=== PATIENT | male | born 1980 ===

== ENCOUNTER 2017-05-16 19:14 | Observation (INO) | payer SELFPAY ==
[2017-05-16 19:41] VITALS: BMI 26.4
[2017-05-16 19:52] VITALS: TEMP 98.1
--- NOTE | 2017-05-16 20:28 | ED PDOC ---
Arrival/HPI - General Chief Complaint: Alcohol Ingestion Time Seen by Provider: 05/16/17 20:16 Historian: Patient - History of Present Illness Narrative History of Present Illness (Text): 05/16/17 20:17 A 36 year old male was brought in by EMS presents to the emergency department for intoxication [place]. Patient admits to drinking a case of beer. Denies of any chest pain, abdominal pain, no shortness of breath. denies headache or dizziness. Denies of any complaints, but does point to old ecchymosis along right anterior chest wall. pt states he thinks he injured it a few days ago at work. denies pain to area. No PMD Time/Duration: Prior to Arrival Symptom Onset: Gradual Symptom Course: Unchanged Context: Other (Park) Past Medical History - Provider Review Nursing Documentation Reviewed: Yes - Travel History Have you recently traveled outside [place] w/in the past 3 mons?: No - Tetanus Immunization Tetanus Immunization: Unknown - Psychiatric Hx Substance Use: No Family/Social History - Physician Review Nursing Documentation Reviewed: Yes Family/Social History: No Known Family HX Smoking Status: unk Hx Alcohol Use: Yes Frequency of alcohol use: Daily Hx Substance Use: No Allergies/Home Meds Allergies/Adverse Reactions: Allergies No Known Allergies Allergy (Verified 05/16/17 19:41) Home Medications: Home Meds Medication Instructions Recorded Confirmed RX: Unobtainable 05/16/17 05/16/17 Review of Systems - Review of Systems Systems not reviewed;Unavailable: Intoxicated Constitutional: absent: Fevers, Other (no trauma or injures) ENT: absent: Epistaxis, Sinus Congestion Respiratory: absent: SOB, Cough Cardiovascular: absent: Chest Pain, Palpitations Gastrointestinal: absent: Abdominal Pain, Nausea, Vomiting Musculoskeletal: absent: Arthralgias, Back Pain, Neck Pain Skin: Other (ecchymosis to right anterior chest). absent: Pruritis Neurological: absent: Headache, Dizziness Psychiatric: absent: Anxiety, Depression, Suicidal Ideation Physical Exam Vital Signs Reviewed: Yes Vital Signs Temp Pulse Resp BP Pulse Ox 05/17/17 03:00 82 18 134/84 98 05/17/17 01:00 84 18 135/84 99 05/16/17 23:00 83 18 138/86 98 05/16/17 21:15 97 H 17 137/94 H 99 05/16/17 19:41 98.1 F 72 18 146/84 99 Temperature: Afebrile Blood Pressure: Normal Pulse: Regular Respiratory Rate: Normal Appearance: Positive for: Non-Toxic, Comfortable, Unkept Pain Distress: None Mental Status: Positive for: Alert and Oriented X 3 Finger Stick Blood Glucose: 83 - Systems Exam Head: Present: Atraumatic. No: Tenderness, Ecchymosis, Abrasion, Laceration Extroacular Muscles: Present: EOMI Mouth: Present: Moist Mucous Membranes Neck: Present: Normal Range of Motion. No: MIDLINE TENDERNESS, Paraspinal Tenderness Respiratory/Chest: Present: Clear to Auscultation, Other (small area of ecchymosis noted to right anterior chest). No: Respiratory Distress, Accessory Muscle Use, Tender to Palpation Cardiovascular: Present: Regular Rate and Rhythm Abdomen: No: Tenderness, Distention, Rebound, Guarding Back: Present: Normal Inspection. No: Midline Tenderness, Paraspinal Tenderness Upper Extremity: Present: Normal Inspection, Normal ROM Lower Extremity: Present: Normal Inspection, Normal ROM Neurological: Present: GCS=15, Motor Func Grossly Intact Skin: Present: Warm, Dry Psychiatric: Present: Alert Medical Decision Making ED Course and Treatment: 05/16/17 20:36 36-year-old male presents for acute alcohol intoxication. Alert oriented in no distress Fingerstick 83 Will observe in the emergency room for sobriety 05/17/17 02:00 case signed out to dr. turcios pending sobriety, re-eval and disposition. ED OBSERVATION Date of observation admission: 05/16/17 Time of observation admission: 19:20 - Observation admission statement Patient is being placed in observation because:: alcohol intoxication - Goals of Observation Goals of observation are:: sobriety - Progress Note Progress Note: 05/16/17 22:18 pt non toxic well appearing; sleeping. 05/17/17 00:08 pt non toxic well appearing; sleeping. 05/17/17 02:00 pt non toxic well appearing; sleeping; stable vitals. case signed out to dr. turcios pending re-eval and disposition. - Scribe Statement The provider has reviewed the documentation as recorded by the Henokibe Clair Holguin Provider Scribe Attestation: All medical record entries made by the Scribe were at my direction and personally dictated by me. I have reviewed the chart and agree that the record accurately reflects my personal performance of the history, physical exam, medical decision making, and the department course for this patient. I have also personally directed, reviewed, and agree with the discharge instructions and disposition. Disposition/Present on Arrival - Present on Arrival Any Indicators Present on Arrival: No History of DVT/PE: No History of Uncontrolled Diabetes: No Urinary Catheter: No History of Decub. Ulcer: No History Surgical Site Infection Following: None - Disposition Have Diagnosis and Disposition been Completed?: Yes Diagnosis: Alcohol intoxication Disposition: HOME/ ROUTINE Disposition Time: 06:00 Condition: IMPROVED
[2017-05-17 00:23] VITALS: RESP 18
[2017-05-17 05:33] VITALS: BP 135/86; PULSE 86; O2SAT 99
== END 2017-05-17 04:54 | disposition home or self-care (01) ==
LOC: ED 19:14 → EROBSV 19:20
PROVIDERS: ADMIT Emergency Medicine; ATTEND Emergency Medicine
DX: F10.129 Alcohol abuse with intoxication, unspecified (principal)
CPT/HCPCS: 99284; G0378